=== PATIENT | male | born 1960 | race Caucasian/White ===

== ENCOUNTER 2017-05-10 22:59 | Inpatient (IN) | payer OTHER ==
[2017-05-10] MEDS ORDERED: NITROGLYCERIN OINT 1 INCH/GM PACKET TOPICAL STA (23:29)
[2017-05-10] MEDS ORDERED: ONDANSETRON 4 MG/2 ML VIAL IVP STA (23:29)
[2017-05-10] MEDS ORDERED: ASPIRIN 81 MG CHEW PO STA (23:29)
[2017-05-10] MEDS ORDERED: PANTOPRAZOLE 40 MG/10 ML VIAL IVP STA (23:30)
--- NOTE | 2017-05-10 23:35 | ED ---
Chest Pain HPI - General Chief Complaint: Chest Pain Stated Complaint: Chest Pain Time Seen by Provider: 05/10/17 23:12 Source: patient Mode of arrival: wheelchair Limitations: no limitations - History of Present Illness Initial Comments: This 57-year-old white male presents with a complaint of some midsternal to left -sided lower chest pain. He states that this started a couple of days ago. He describes it as achy nonradiating pain. He states that he has not drank alcohol in 3 years but apparently had several beers the day prior and then vomited twice the day afterwards. He has had intermittent symptoms since. He states that the chest pain is fairly severe earlier in much resolved now. He is still having some nausea. He denies any history of DVT or PE but has had some bilateral lower extremity calf pain for the past month. He denies any actual abdominal pain. He does have a history of gas esophageal reflux and states that his been out of his Prilosec for the past week. He denies any history of pancreatitis. He may have had a degree of anxiety today as he said that he had a bad day. No other complaints or modifying factors. - Related Data Home Medications Medication Instructions Recorded Confirmed Losartan [Cozaar] 25 mg PO BID 05/17/14 06/04/16 ALPRAZolam [Xanax] 2 mg PO HS 07/11/14 06/04/16 amLODIPine [Norvasc] 10 mg PO DAILY 07/11/14 06/04/16 oxyCODONE HCL 30 mg PO Q6HR PRN 07/11/14 06/04/16 hydrALAZINE HCL [Apresoline] 1 tab PO BID 09/12/14 06/04/16 Allergies Allergy/AdvReac Type Severity Reaction Status Date / Time No Known Allergies Allergy Verified 05/10/17 23:06 Review of Systems ROS Statement: Those systems with pertinent positive or pertinent negative responses have been documented in the HPI. ROS Other: All systems not noted in ROS Statement are negative. Past Medical History Past Medical History: Diabetes Mellitus, Hypertension Additional Past Medical History / Comment(s): Hep C, chronic back pain History of Any Multi-Drug Resistant Organisms: None Reported Past Surgical History: Orthopedic Surgery, Tonsillectomy Additional Past Surgical History / Comment(s): right shoulder Past Psychological History: Anxiety Smoking Status: Current every day smoker Past Alcohol Use History: Occasional Past Drug Use History: Marijuana General Exam - General Exam Comments Initial Comments: GENERAL: The patient is well nourished and well hydrated. VITAL SIGNS: Heart rate, blood pressure, respiratory rate reviewed as recorded in nurse's notes. EYES: Pupils are round and reactive. Extraocular movements are intact. No conjunctival / lid redness or swelling. ENT: No external evidence of injury, swelling, or ecchymosis. Airway is patent. Throat is clear. NECK: Nontender. No swelling or evidence of injury. No subcutaneous emphysema. Trachea is midline. No thyroid mass. HEART: Regular rate and rhythm. Good peripheral pulses. LUNGS/CHEST: Breath sounds clear and equal bilaterally. No rales, rhonchi, or wheezes. No ecchymosis, subcutaneous emphysema, or tenderness. ABDOMEN: Abdomen soft without tenderness. No palpable masses or organomegaly. No peritoneal signs. No abdominal wall swelling or ecchymosis. EXTREMITIES: No extremity tenderness. Normal muscle tone and function. No thoracolumbar tenderness. NEUROLOGIC: Sensation is grossly intact. Cranial nerve exam reveals face is symmetrical, tongue is midline, speech is clear. SKIN: No abrasions or ecchymosis is noted. No induration or masses noted. PSYCHIATRIC: Alert and oriented. Appropriate behavior and judgment. Limitations: no limitations Course Vital Signs 05/10/17 05/11/17 23:06 00:15 Temperature 98.5 F Pulse Rate 89 85 Respiratory 22 22 Rate Blood Pressure 162/74 177/74 O2 Sat by Pulse 98 98 Oximetry Chest Pain MDM - MDM The patient was seen and examined. All diagnostics were reviewed. He was placed on a rn cardiac rehab no ectopy is identified. The EKG shows a normal sinus rhythm at a rate of 87. There are no acute ST-T wave changes noted. The [place] interval is 160, QRS duration is 84, and the QTc interval is 423. He does receive some aspirin as well as some Nitropaste, IV Protonix, and Zofran. The laboratory does show elevation of the blood sugar as well as a degree of renal insufficiency and significant elevation of the CPK. The possibility of an early rhabdomyolysis certainly is possible. He relates that he has been in prison for the last 9 months and got out recently and has had increased walking. The possibility of this causing some mild rhabdomyolysis certainly is possible. The CK-MB is also elevated but the troponin is negative. There is no old laboratory in the system to compare previous renal function studies. The chest x-ray does not show any acute process per my evaluation with final radiologic review pending. The case will be discussed with internal medicine shortly and the patient will be admitted to the hospital for further treatment. A lower extremity venous Doppler ultrasound is completed and does not show any evidence of DVT. The possibility of acute coronary syndrome certainly is possible. It is also possible that he could have a degree of gas esophageal reflux since he has been off of his medication recently. He started back on some Protonix. Disposition Clinical Impression: Chest pain, Bilateral calf pain, Hypertension, Nausea and vomiting, GERD ( gastroesophageal reflux disease), Anemia, Renal insufficiency, Rhabdomyolysis Disposition: ADMITTED IP TO THIS HOSP Condition: Fair Time of Disposition: 00:50 Decision Date: 05/11/17 Decision Time: 00:50
[2017-05-11 00:04] LABS: WBC 9.3 k/uL (3.8-10.6)
[2017-05-11 00:05] LABS: Basophils # (A) 0.1 k/uL (0-0.2); Basophils % (A) 1 %; CH 31.1; CHCM 36.1; Eosinophils # (A) 0.4 k/uL (0-0.7); Eosinophils % (A) 4 %; HCT 33.5 % (39.0-53.0); HGB 11.7 gm/dL (13.0-17.5); Luc # (Auto) 0.23; Luc % (Auto) 2; Lymphocytes % (A) 21 %; MCH 30.4 pg (25.0-35.0); MCHC 35.1 g/dL (31.0-37.0); MCV 86.8 fL (80.0-100.0); Mean Platelet Volume 7.8; Monocytes # (A) 0.6 k/uL (0-1.0); Monocytes % (A) 7 %; Neutrophils # (A) 6.1 k/uL (1.3-7.7); Neutrophils % (A) 65 %; RBC 3.86 m/uL (4.30-5.90); RDW 13.8 % (11.5-15.5); WBC (Perox) 8.98
[2017-05-11 00:09] LABS: Calcium 10.4 mg/dL (8.4-10.2); Magnesium 2.2 mg/dL (1.6-2.3); Potassium 3.9 mmol/L (3.5-5.1); Total Bilirubin 0.7 mg/dL (0.2-1.3); Total Protein 7.1 g/dL (6.3-8.2)
[2017-05-11 00:21] LABS: Creatine Kinase 1290 U/L (55-170)
[2017-05-11] MEDS ORDERED: SODIUM CHLORIDE 0.9% 1,000 ML IV STA ×2 (00:32→01:03)
[2017-05-11 00:34] LABS: Troponin I <0.012 ng/mL (0.000-0.034)
[2017-05-11 00:44] LABS: Creatine Kinase MB 9.3 ng/mL (0.0-2.4)
[2017-05-11] MEDS ORDERED: METOCLOPRAMIDE 5 MG/ML 2 ML VIAL IVP STA (00:48)
[2017-05-11] MEDS ORDERED: HYDROmorphone 1 MG/ML 1 ML SYRINGE IVP STA (00:48)
--- NOTE | 2017-05-11 00:48 | XR ---
EXAM: XR Chest, 2 Views CLINICAL HISTORY: Reason: Chest Pain TECHNIQUE: Frontal and lateral views of the chest. COMPARISON: No relevant prior studies available. FINDINGS: Lungs: Lungs are clear. Pleural space: Unremarkable. No pneumothorax. Heart: Heart size within normal limits Mediastinum: Mediastinal structures are unremarkable Bones/joints: Hypertrophic degenerative changes involve the thoracic spine. IMPRESSION: No evidence of active chest disease.
[2017-05-11] MEDS ORDERED: FAMOTIDINE 20 MG/2 ML VIAL IV STA (00:51)
[2017-05-11] MEDS ORDERED: HEPARIN SODIUM,PORCINE 5,000 UNIT/ML 1 ML VIAL IV PRN (00:52)
[2017-05-11] MEDS ORDERED: HEPARIN SODIUM,PORCINE 5,000 UNIT/ML 1 ML VIAL IV ONE (00:52)
[2017-05-11] MEDS ORDERED: NITROGLYCERIN SL TABS 0.4 MG TAB SUBLINGUAL PRN (00:52)
[2017-05-11] MEDS ORDERED: MORPHINE SULFATE 4 MG/ML SYRINGE IV PRN (00:52)
[2017-05-11 00:54] LABS: Prothrombin Time 9.9 sec (9.0-12.0)
[2017-05-11] MEDS ORDERED: METOCLOPRAMIDE 5 MG/ML 2 ML VIAL IVP PRN (00:56)
[2017-05-11] MEDS ORDERED: HEPARIN SODIUM,PORCINE/D5W PMX 25,000 UNIT in DEXTROSE/WATER 1 500ML.BAG IV SCH (01:00)
[2017-05-11] MEDS ORDERED: cloNIDine HCL 0.1 MG TAB PO PRN (01:02)
[2017-05-11 01:04] LABS: Partial Thromboplastin Time 21.8 sec (22.0-30.0)
--- NOTE | 2017-05-11 01:04 | US ---
EXAM: US Duplex Bilateral Lower Extremity Veins CLINICAL HISTORY: Reason: Pain TECHNIQUE: Real-time ultrasound scan of the veins of the bilateral lower extremities with color Doppler flow, spectral waveform analysis and compression. COMPARISON: No relevant prior studies available. FINDINGS: Right deep veins: Unremarkable. No DVT in the right common femoral, femoral, proximal deep femoral or popliteal veins. The veins are compressible with normal color flow and augmentation. Right superficial veins: Unremarkable. No thrombus in the visualized right great saphenous vein. Left deep veins: Unremarkable. No DVT in the left common femoral, femoral, proximal deep femoral or popliteal veins. The veins are compressible with normal color flow and augmentation. Left superficial veins: Unremarkable. No thrombus in the visualized left great saphenous vein. IMPRESSION: No ultrasound evidence of deep venous thrombosis.
[2017-05-11 02:16] VITALS: BMI 37.7
[2017-05-11] MEDS: ONDANSETRON 4 MG/2 ML VIAL IVP SCH ×4 (02:20→12:04)
[2017-05-11] MEDS: NITROGLYCERIN OINT 1 INCH/GM PACKET TOPICAL SCH ×2 (05:19→11:53)
[2017-05-11 05:48] LABS: Glucose,Whole Blood 208 mg/dL (75-99)
[2017-05-11] MEDS: INSULIN LISPRO (humaLOG) 300 UNIT/3 ML VIAL SQ SCH ×2 (06:28→12:46)
[2017-05-11 06:43] LABS: Anion Gap 11 mmol/L; Blood Urea Nitrogen 45 mg/dL (9-20); Calcium 9.1 mg/dL (8.4-10.2); Carbon Dioxide 19 mmol/L (22-30); Chloride 108 mmol/L (98-107); Glucose 184 mg/dL (74-99); Non-African American GFR(MDRD) 59 (>60 ml/min/1.73 sqM); Potassium 4.2 mmol/L (3.5-5.1); Sodium 138 mmol/L (137-145)
[2017-05-11 06:55] LABS: Creatine Kinase 918 U/L (55-170)
[2017-05-11 07:09] LABS: Troponin I <0.012 ng/mL (0.000-0.034)
[2017-05-11 07:12] LABS: Creatine Kinase MB 6.8 ng/mL (0.0-2.4)
[2017-05-11 07:22] LABS: Mean Platelet Volume 7.5
[2017-05-11] MEDS ORDERED: amLODIPine 10 MG TAB PO SCH (09:00)
[2017-05-11] MEDS ORDERED: LOSARTAN 25 MG TAB PO SCH (09:00)
[2017-05-11] MEDS ORDERED: PANTOPRAZOLE 40 MG/10 ML VIAL IVP SCH (09:00)
[2017-05-11] MEDS ORDERED: hydrALAZINE HCL 50 MG TAB PO SCH (09:00)
[2017-05-11 09:27] VITALS: RESP 18
--- NOTE | 2017-05-11 10:42 | P.CRDCN ---
History of Present Illness Consult date: 05/11/17 History of present illness: His is a 57-year-old gentleman with history of of diabetes and hypertension, apparently had a few beers prior to the admission followed by nausea and vomiting. He also had some chest pain which seemed to mostly in the epigastric area well localized .The pain increases on deep breathing. The pain seemed to be better today. Patient also has history of acid reflux. His cardiac enzymes studies are negative. His EKG did not reveal any acute changes. It appears that the pains are atypical. From cardiac standpoint, patient could be discharged home. Patient could have an outpatient stress test and follow-up with his primary care physician Review of Systems As per the chart Past Medical History Past Medical History: Diabetes Mellitus, Hypertension Additional Past Medical History / Comment(s): Hep C, chronic back pain History of Any Multi-Drug Resistant Organisms: None Reported Past Surgical History: Orthopedic Surgery, Tonsillectomy Additional Past Surgical History / Comment(s): right shoulder Past Psychological History: Anxiety Smoking Status: Current every day smoker Past Alcohol Use History: Rare Past Drug Use History: Marijuana Medications and Allergies Home Medications Medication Instructions Recorded Confirmed Type Melatonin 9 mg PO HS 05/11/17 05/11/17 History Sertraline [Zoloft] 100 mg PO HS 05/11/17 05/11/17 History Allergies Allergy/AdvReac Type Severity Reaction Status Date / Time No Known Allergies Allergy Verified 05/10/17 23:06 Physical Exam Vitals: Vital Signs Temp Pulse Pulse Resp BP BP Pulse Ox 05/11/17 08:00 97.3 F L 74 18 131/64 93 L 05/11/17 04:00 97.5 F L 76 16 133/71 95 05/11/17 01:39 98.0 F 05/11/17 01:21 97.5 F L 81 16 163/77 96 05/11/17 00:59 85 22 143/69 99 05/11/17 00:52 96 05/11/17 00:15 85 22 177/74 98 05/10/17 23:06 98.5 F 89 22 162/74 98 Intake and Output 05/10/17 05/11/17 05/11/17 22:59 06:59 14:59 Intake Total 400 137 Output Total 400 Balance 0 137 Intake: IV 400 Sodium Chloride 0.9% 1, 400 000 ml @ 125 mls/hr IV . Q8H [facility] Rx#:[id number] Intake, IV Titration 137 Amount Heparin Sodium,Porcine/ 137 D5w Pmx 25,000 unit In Dextrose/Water 1 500ml. bag @ 8.9 UNITS/KG/HR 20. 18 mls/hr IV .Q24H [facility] Rx #:[id number] Output: Urine 400 Other: Voiding Method Toilet Toilet Urinal Urinal Weight 115.8 kg GENERAL EXAM: Patient is alert and oriented and doesn't appear to be in any acute distress HEENT: Normocephalic. Normal reaction of pupils, equal size, normal range of extraocular motion. No erythema or exudates in the throat. NECK: No masses, no nuchal rigidity. CHEST: No chest wall deformity. LUNGS: Equal air entry with no crackles or wheeze. HEART: S1 and S2 normal with no audible mumurs or gallops. Regular rhythm, femorals equal on both sides.. ABDOMEN: No hepatosplenomegaly, normal bowel sounds, no guarding or rigidity. Epigastric tenderness present SKIN: No rashes CENTRAL NERVOUS SYSTEM: No focal deficits. EXTREMITIES: No cyanosis, clubbing or edema. Results 05/11/17 05:40 05/11/17 05:40 Cardiac Enzymes 05/10/17 05/10/17 05/11/17 Range/Units 23:46 23:46 05:40 AST 68 H (17-59) U/L CK-MB (CK-2) 9.3 H* 6.8 H* (0.0-2.4) ng/mL Troponin I <0.012 <0.012 (0.000-0.034) ng/mL Coagulation 05/10/17 05/11/17 Range/Units 23:46 05:40 PT 9.9 (9.0-12.0) sec APTT 21.8 L 30.1 H (22.0-30.0) sec CBC 05/10/17 05/11/17 Range/Units 23:46 05:40 WBC 9.3 (3.8-10.6) k/uL RBC 3.86 L (4.30-5.90) m/uL Hgb 11.7 L (13.0-17.5) gm/dL Hct 33.5 L (39.0-53.0) % Plt Count 180 162 (150-450) k/uL Comprehensive Metabolic Panel 05/10/17 05/11/17 Range/Units 23:46 05:40 Sodium 137 138 (137-145) mmol/L Potassium 3.9 4.2 (3.5-5.1) mmol/L Chloride 102 108 H (98-107) mmol/L Carbon Dioxide 21 L 19 L (22-30) mmol/L BUN 50 H 45 H (9-20) mg/dL Creatinine 1.50 H 1.26 H (0.66-1.25) mg/dL Glucose 222 H 184 H (74-99) mg/dL Calcium 10.4 H 9.1 (8.4-10.2) mg/dL AST 68 H (17-59) U/L ALT 71 (21-72) U/L Alkaline Phosphatase 127 H (38-126) U/L Total Protein 7.1 (6.3-8.2) g/dL Albumin 4.3 (3.5-5.0) g/dL Current Medications Generic Name Dose Route Start Last Admin Trade Name Freq PRN Reason Stop Dose Admin Amlodipine Besylate 10 mg 05/11/17 09:00 05/11/17 08:05 Norvasc PO 10 mg DAILY [facility] Administration Aspirin 325 mg 05/12/17 09:00 Aspirin PO DAILY [facility] Clonidine 0.1 mg 05/11/17 01:02 Catapres PO Q8H PRN Hypertension Heparin Sodium (Porcine) 0 unit 05/11/17 00:52 Heparin IV Q6HR PRN Low PTT Protocol Hydralazine HCl 50 mg 05/11/17 09:00 05/11/17 08:05 Apresoline PO 50 mg BID ALEJO Administration Heparin Sodium/Dextrose 25,000 500 mls @ 20.18 mls/hr 05/11/17 01:00 08:19 unit/ IV Solution IV 11.8 units/kg/hr .Q24H ALE[facility] 26.76 mls/hr Protocol Titration 8.9 UNITS/KG/HR Insulin Human Lispro 0 unit 05/11/17 07:30 05/11/17 06:28 Humalog SQ Not Given ACHS ALEJO Protocol Losartan Potassium 25 mg 05/11/17 09:00 05/11/17 08:06 Cozaar PO 25 mg BID ALEJO Administration Metoclopramide HCl 10 mg 05/11/17 00:56 Reglan IVP Q6H PRN Nausea Morphine Sulfate 4 mg 05/11/17 00:52 Morphine Sulfate (Inj) IV Q4H PRN Chest Pain Nitroglycerin 1 inch 05/11/17 06:00 05/11/17 05:19 Nitro-Bid Oint TOPICAL 1 inch Q6HR ALEJO Administration Nitroglycerin 0.4 mg 05/11/17 00:52 Nitrostat SUBLINGUAL Q5M PRN Chest Pain Ondansetron HCl 4 mg 05/11/17 01:00 05/11/17 08:10 Zofran IVP 4 mg Q4H ALE[facility] Administration Pantoprazole Sodium 40 mg 05/11/17 09:00 05/11/17 08:06 Protonix IVP 40 mg DAILY ALE[facility] Administration Intake and Output 05/10/17 05/11/17 05/11/17 22:59 06:59 14:59 Intake Total 400 137 Output Total 400 Balance 0 137 Intake: IV 400 Sodium Chloride 0.9% 1, 400 000 ml @ 125 mls/hr IV . Q8H [facility] Rx#:[id number] Intake, IV Titration 137 Amount Heparin Sodium,Porcine/ 137 D5w Pmx 25,000 unit In Dextrose/Water 1 500ml. bag @ 8.9 UNITS/KG/HR 20. 18 mls/hr IV .Q24H [facility] Rx #:[id number] Output: Urine 400 Other: Voiding Method Toilet Toilet Urinal Urinal Weight 115.8 kg 05/11/17 05:40 05/11/17 05:40 EKG Interpretations (text) Sinus rhythm Assessment and Plan (1) Chest pain Status: Acute (2) GERD (gastroesophageal reflux disease) Status: Acute (3) Hypertension Status: Acute (4) Renal insufficiency Status: Acute (5) Rhabdomyolysis Status: Acute Plan: Recent chest pains appear to be atypical. Cardiac enzymes are negative. From cardiac standpoint, patient could be discharged home to have an outpatient stress test
[2017-05-11 11:23] LABS: Glucose,Whole Blood 207 mg/dL (75-99)
[2017-05-11] MEDS ORDERED: SODIUM CHLORIDE 0.9% 1,000 ML IV SCH (12:00)
[2017-05-11 13:32] LABS: Creatine Kinase 704 U/L (55-170)
[2017-05-11 13:46] LABS: Troponin I <0.012 ng/mL (0.000-0.034)
[2017-05-11 13:54] LABS: Creatine Kinase MB 5.6 ng/mL (0.0-2.4)
[2017-05-11] MEDS ORDERED: SODIUM CHLORIDE 0.9% 500 ML IV ONE (13:55)
[2017-05-11 14:09] VITALS: BP 122/56; PULSE 83; TEMP 98.4
--- NOTE | 2017-05-11 14:47 | P.HPIM ---
History of Present Illness His is a 57-year-old gentleman with history of of diabetes and hypertension, had a few beers prior to the admission followed by nausea and vomiting, with epigastric abdominal burning sensation seconded all colic gastritis. Aberrantly patient complained about pain that is pruritic in nature because of which patient had a d-dimer that was positive. Although patient does not have any more chest pain because of which my suspicion is extremely low for pulmonary embolism and I do not believe any further testing including PD to be done at this point of time. Patient's chest pain completely resolved with Protonix and is noncardiac in nature. He also had some chest pain which seemed to mostly in the epigastric area well localized . Patient also has history of acid reflux. His cardiac enzymes studies are negative. His EKG did not reveal any acute changes. It appears that the pains are atypical. Review of Systems REVIEW OF SYSTEMS: CONSTITUTIONAL: No fever, no malaise, no fatigue. HEENT: No recent visual problems or hearing problems. Denied any sore throat. CARDIOVASCULAR: No chest pain, orthopnea, PND, no palpitations, no syncope. PULMONARY: No shortness of breath, no cough, no hemoptysis. GASTROINTESTINAL: As described in HPI NEUROLOGICAL: No headaches, no weakness, no numbness. HEMATOLOGICAL: Denies any bleeding or petechiae. GENITOURINARY: Denies any burning micturition, frequency, or urgency. MUSCULOSKELETAL/RHEUMATOLOGICAL: Denies any joint pain, swelling, or any muscle pain. ENDOCRINE: Denies any polyuria or polydipsia. The rest of the 14-point review of systems is negative. Past Medical History Past Medical History: Diabetes Mellitus, Hypertension Additional Past Medical History / Comment(s): Hep C, chronic back pain History of Any Multi-Drug Resistant Organisms: None Reported Past Surgical History: Orthopedic Surgery, Tonsillectomy Additional Past Surgical History / Comment(s): right shoulder Past Psychological History: Anxiety Smoking Status: Current every day smoker Past Alcohol Use History: Rare Past Drug Use History: Marijuana Medications and Allergies Home Medications Medication Instructions Recorded Confirmed Type Melatonin 9 mg PO HS 05/11/17 05/11/17 History Sertraline [Zoloft] 100 mg PO HS 05/11/17 05/11/17 History Allergies Allergy/AdvReac Type Severity Reaction Status Date / Time No Known Allergies Allergy Verified 05/10/17 23:06 Physical Exam Vitals: Vital Signs Temp Pulse Pulse Resp BP BP Pulse Ox 05/11/17 12:00 98.4 F 83 18 122/56 93 L 05/11/17 08:00 97.3 F L 74 18 131/64 93 L 05/11/17 04:00 97.5 F L 76 16 133/71 95 05/11/17 01:39 98.0 F 05/11/17 01:21 97.5 F L 81 16 163/77 96 05/11/17 00:59 85 22 143/69 99 05/11/17 00:52 96 05/11/17 00:15 85 22 177/74 98 05/10/17 23:06 98.5 F 89 22 162/74 98 Intake and Output 05/10/17 05/11/17 05/11/17 22:59 06:59 14:59 Intake Total 400 377 Output Total 400 400 Balance 0 -23 Intake: IV 400 Sodium Chloride 0.9% 1, 400 000 ml @ 125 mls/hr IV . Q8H [facility] Rx#:[id number] Intake, IV Titration 137 Amount Heparin Sodium,Porcine/ 137 D5w Pmx 25,000 unit In Dextrose/Water 1 500ml. bag @ 8.9 UNITS/KG/HR 20. 18 mls/hr IV .Q24H [facility] Rx #:[id number] Oral 240 Output: Urine 400 400 Other: Voiding Method Toilet Toilet Urinal Urinal # Voids 1 Weight 115.8 kg PHYSICAL EXAMINATION: GENERAL: The patient is alert and oriented x3, not in any acute distress. Well developed, well nourished. HEENT: Pupils are round and equally reacting to light. EOMI. No scleral icterus. No conjunctival pallor. Normocephalic, atraumatic. No pharyngeal erythema. No thyromegaly. CARDIOVASCULAR: S1 and S2 present. No murmurs, rubs, or gallops. PULMONARY: Chest is clear to auscultation, no wheezing or crackles. ABDOMEN: Soft, nontender, nondistended, normoactive bowel sounds. No palpable organomegaly. MUSCULOSKELETAL: No joint swelling or deformity. EXTREMITIES: No cyanosis, clubbing, or pedal edema. NEUROLOGICAL: Gross neurological examination did not reveal any focal deficits. SKIN: No rashes. Results CBC & Chem 7: 05/11/17 05:40 05/11/17 05:40 Labs: Abnormal Lab Results - Last 24 Hours (Table) 05/10/17 05/10/17 05/10/17 Range/Units 23:46 23:46 23:46 RBC 3.86 L (4.30-5.90) m/uL Hgb 11.7 L (13.0-17.5) gm/dL Hct 33.5 L (39.0-53.0) % APTT (22.0-30.0) sec D-Dimer (<0.60) mg/L FEU Chloride (98-107) mmol/L Carbon Dioxide 21 L (22-30) mmol/L BUN 50 H (9-20) mg/dL Creatinine 1.50 H (0.66-1.25) mg/dL Glucose 222 H (74-99) mg/dL POC Glucose (mg/dL) (75-99) mg/dL Calcium 10.4 H (8.4-10.2) mg/dL AST 68 H (17-59) U/L Alkaline Phosphatase 127 H (38-126) U/L Total Creatine Kinase 1290 H (55-170) U/L CK-MB (CK-2) 9.3 H* (0.0-2.4) ng/mL 05/10/17 05/11/17 05/11/17 Range/Units 23:46 05:40 05:40 RBC (4.30-5.90) m/uL Hgb (13.0-17.5) gm/dL Hct (39.0-53.0) % APTT 21.8 L (22.0-30.0) sec D-Dimer 1.66 H (<0.60) mg/L FEU Chloride 108 H (98-107) mmol/L Carbon Dioxide 19 L (22-30) mmol/L BUN 45 H (9-20) mg/dL Creatinine 1.26 H (0.66-1.25) mg/dL Glucose 184 H (74-99) mg/dL POC Glucose (mg/dL) (75-99) mg/dL Calcium (8.4-10.2) mg/dL AST (17-59) U/L Alkaline Phosphatase (38-126) U/L Total Creatine Kinase 918 H (55-170) U/L CK-MB (CK-2) 6.8 H* (0.0-2.4) ng/mL 05/11/17 05/11/17 05/11/17 Range/Units 05:40 05:47 11:14 RBC (4.30-5.90) m/uL Hgb (13.0-17.5) gm/dL Hct (39.0-53.0) % APTT 30.1 H (22.0-30.0) sec D-Dimer (<0.60) mg/L FEU Chloride (98-107) mmol/L Carbon Dioxide (22-30) mmol/L BUN (9-20) mg/dL Creatinine (0.66-1.25) mg/dL Glucose (74-99) mg/dL POC Glucose (mg/dL) 208 H 207 H (75-99) mg/dL Calcium (8.4-10.2) mg/dL AST (17-59) U/L Alkaline Phosphatase (38-126) U/L Total Creatine Kinase (55-170) U/L CK-MB (CK-2) (0.0-2.4) ng/mL 05/11/17 Range/Units 12:28 RBC (4.30-5.90) m/uL Hgb (13.0-17.5) gm/dL Hct (39.0-53.0) % APTT (22.0-30.0) sec D-Dimer (<0.60) mg/L FEU Chloride (98-107) mmol/L Carbon Dioxide (22-30) mmol/L BUN (9-20) mg/dL Creatinine (0.66-1.25) mg/dL Glucose (74-99) mg/dL POC Glucose (mg/dL) (75-99) mg/dL Calcium (8.4-10.2) mg/dL AST (17-59) U/L Alkaline Phosphatase (38-126) U/L Total Creatine Kinase 704 H (55-170) U/L CK-MB (CK-2) 5.6 H* (0.0-2.4) ng/mL Thrombosis Risk Factor Assmnt - Choose All That Apply Each Factor Represents 1 point: Age 41-60 years, Obesity (BMI >25) Thrombosis Risk Factor Assessment Total Risk Factor Score: 2 Thrombosis Risk Factor Assessment Level: Low Risk Assessment and Plan Plan: Assessment #1 chest pain: Related to gastritis from alcohol patient most probably has chronic gastritis improved symptoms with the Protonix and patient will be discharged on Prilosec for 14 days. Patient doesn't drink alcohol regularly.. 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 His chest pain is noncardiac. My suspicion is extremely low for pulmonary embolism in spite of elevated d-dimer which is pretty much a nonspecific test. #2 Nausea vomiting: Secondry gastritis 3 obesity: Counseling was provided. Patient will benefit from sleep apnea testing as an outpatient. #4 Depression Riri with Zoloft. Patient will be discharged today.
--- NOTE | 2017-05-11 14:48 | P.DS ---
Providers Date of admission: 05/11/17 00:52 Attending physician: Theo Haider Consults: 05/11/17 00:52 Consult Physician Urgent Consulting Provider: Michael Arnett Consult Reason/Comments: cp Do you want consulting provider notified?: Yes Primary care physician: Stated None Hospital Course: Please refer to HPI for further details Patient Condition at Discharge: Fair Plan - Discharge Summary New Discharge Prescriptions: New Omeprazole [PriLOSEC] 40 mg PO AC-BRKFST #14 capsule. No Action Sertraline [Zoloft] 100 mg PO HS Melatonin 9 mg PO HS Discharge Medication List Melatonin 9 mg PO HS 05/11/17 [History] Omeprazole [PriLOSEC] 40 mg PO AC-BRKFST #14 capsule. 05/11/17 [Rx] Sertraline [Zoloft] 100 mg PO HS 05/11/17 [History] Discharge Disposition: HOME SELF-CARE
[2017-05-12] MEDS ORDERED: ASPIRIN 325 MG TAB PO SCH (09:00)
[2017-05-12] MEDS ORDERED: amLODIPine 5 MG TAB PO SCH (09:00)
[2017-05-12 09:28] LABS: Hemoglobin A1C 7.5 % (4.2-6.1)
== END 2017-05-11 15:31 | disposition home or self-care (01) | DRG 392 ==
LOC: EC 22:59 → 6SEL 05-11 00:52
PROVIDERS: ADMIT Hospitalist; ATTEND Hospitalist
DX: K29.50 Unspecified chronic gastritis without bleeding (principal); M62.82 Rhabdomyolysis; I10 Essential (primary) hypertension; F32.9 Major depressive disorder, single episode, unspecified; D64.9 Anemia, unspecified; E11.9 Type 2 diabetes mellitus without complications; R07.89 Other chest pain; N28.9 Disorder of kidney and ureter, unspecified; B19.20 Unspecified viral hepatitis C without hepatic coma; K21.9 Gastro-esophageal reflux disease without esophagitis; M79.661 Pain in right lower leg; M79.662 Pain in left lower leg; E66.9 Obesity, unspecified; F41.9 Anxiety disorder, unspecified; G89.29 Other chronic pain; L29.9 Pruritus, unspecified; M54.9 Dorsalgia, unspecified; F12.90 Cannabis use, unspecified, uncomplicated; F17.200 Nicotine dependence, unspecified, uncomplicated; Z68.37 Body mass index [BMI] 37.0-37.9, adult; Z79.899 Other long term (current) drug therapy; Z71.3 Dietary counseling and surveillance
CPT/HCPCS: 36415; 71020; 80048; 80053; 82150; 82550; 82553; 83036; 83690; 83735; 84484; 85025; 85049; 85379; 85610; 85730; 93005; 93970; 96361; 96374; 96375; 96376; 99285

== ENCOUNTER → 2017-05-14 | Outpatient (CLI) | payer OTHER ==
--- NOTE | 2017-05-14 13:14 | XR ---
EXAMINATION TYPE: XR Hip Complete LT , 2 VIEWS DATE OF EXAM ORDERED: 05/14/2017 HISTORY: pain R52. COMPARISON: None. FINDINGS: The hip joint is well-maintained. No fracture, dislocation or other osseous lesion is seen . IMPRESSION: NORMAL LEFT HIP.
== END | disposition home or self-care (01) ==
LOC: RADXRMAIN 12:51
PROVIDERS: ATTEND Family Medicine
DX: M25.552 Pain in left hip (principal)
CPT/HCPCS: 73502

== ENCOUNTER → 2017-06-01 | Outpatient (CLI) | payer OTHER ==
--- NOTE | 2017-06-01 15:59 | MR ---
EXAMINATION TYPE: MR lumbar spine wo con DATE OF EXAM: 06/01/2017 COMPARISON: 10/08/2010 HISTORY: 57-year-old male with low back pain, bilateral lower extremity radiculopathy for several yea rs TECHNIQUE: Multiplanar, multisequence images of the lumbar spine were acquired. FINDINGS: Vertebral body heights are preserved. Hypertrophic facet arthropathy throughout with new grade 1 retrolistheses at T12-L1 and L1-L2. Mild diffuse marrow heterogeneity without suspicious bone marrow replacement. Multilevel degenerative disc disease with degenerated, desiccated, and bulging discs. Mild disc space narrowing throughout. Disc bulges show interval increase from prior exam. While the conus medullaris is normally located, there is a congenital spinal canal stenosis especiall y at the mid lumbar spine with AP canal dimension of 1.2 cm. At T11-T12, there is mild bulging disc and facet degenerative change without significant canal or for aminal stenosis. At T12-L1, trace retrolisthesis with diffuse disc bulge and facet degenerative change. Mild impressio n on the ventral thecal sac with minimal inferior narrowing of the left neuroforamen. No significant spinal canal or neuroforaminal stenosis. At L1-L2, trace retrolisthesis with diffuse disc bulge, ligamentum flavum thickening, prominent dorsa l epidural fat, and facet degenerative change. There is increasing, moderate spinal canal stenosis wi th very little if any CSF signal remaining and bunched up cauda equina nerve roots. Moderate bilatera l neuroforaminal stenosis at this level increased particularly on the right. At L2-L3, there is diffuse disc bulge with facet arthropathy and ligamentum flavum thickening. Change s result in worsening moderate spinal canal stenosis with mild left and [id number] right neurof oraminal stenosis. At L3-L4, diffuse disc bulge with hypertrophic facet arthropathy and ligamentum flavum thickening. Th is accentuates the mild spinal canal stenosis and is worsened as compared to prior exam. Mild bilater al neuroforaminal stenosis. At L4-L5, fused disc bulge with facet arthropathy and ligamentum flavum thickening. There is mild tomas ateral neuroforaminal stenosis without spinal canal stenosis. At L5-S1, there is facet arthropathy without significant canal or foraminal stenosis. No prevertebral or paravertebral soft tissue abnormality. Borderline ectasia of the upper abdominal aorta at 2.5 cm. IMPRESSION: 1. Congenital spinal canal narrowing with interval worsening moderate multilevel degenerative disc di sease and facet arthropathy now with new trace retrolistheses at T12-L1 and L1-L2. 2. Worsened, now moderate spinal canal stenoses at L1-L2 and L2-L3. 3. Variable mild to moderate neuroforaminal stenoses as outlined above particularly in the upper to m id lumbar spine.
== END | disposition home or self-care (01) ==
LOC: RADMRIMAIN 12:07
PROVIDERS: ATTEND Family Medicine
DX: M48.06 Spinal stenosis, lumbar region (principal); M51.16 Intervertebral disc disorders with radiculopathy, lumbar region; M46.96 Unspecified inflammatory spondylopathy, lumbar region; M99.73 Connective tissue and disc stenosis of intervertebral foramina of lumbar region; M43.16 Spondylolisthesis, lumbar region
CPT/HCPCS: 72148

== ENCOUNTER → 2017-06-29 | Outpatient (CLI) | payer OTHER ==
--- NOTE | 2017-06-29 16:07 | MR ---
EXAMINATION TYPE: MR cervical spine wo con DATE OF EXAM: 06/29/2017 COMPARISON: 10/08/2010 HISTORY: Neck pain, tomas arm pain and weakness TECHNIQUE: Multiplanar, multisequence images of the cervical spine were acquired. C2-C3: Uncovertebral hypertrophy and a broad-based disc osteophyte as well as facet arthropathy contr ibute to severe left neural foraminal narrowing. No right neural foraminal narrowing or spinal canal stenosis are seen. C3-C4: Progressive disc bulge in disc osteophyte complex as well as ligamentum flavum buckling, uncov ertebral hypertrophy, and facet arthropathy contribute to moderate spinal canal stenosis with resulta nt focal increased signal of the cervical cord, not appreciated on the prior examination. This is mor e likely to relate to myelomalacia as there is no reported known trauma. The patient states the sympt oms have been present for 10 years. Bilateral severe neural foraminal stenosis is seen. C4-C5: Broad-based disc bulge and disc osteophyte complex are seen in combination with uncovertebral hypertrophy and facet arthropathy creating at least moderate bilateral neural foraminal narrowing. C5-C6: Left paracentral disc herniation superimposed on a broad-based disc bulge extends into the lef t lateral recess creating severe left neural foraminal narrowing, moderate spinal canal stenosis, and at least moderate right neural foraminal narrowing. No abnormal spinal cord signal is seen. Ligament um flavum buckling is noted. C6-C7: Broad-based disc bulge and disc osteophyte complex as well as uncovertebral hypertrophy create moderate bilateral neural foraminal narrowing. C7-T1: Broad-based disc bulge, uncovertebral hypertrophy, and facet arthropathy creating moderate lef t neural foraminal narrowing and mild right neural foraminal narrowing. Cervical segments are intact. There is normal alignment. Craniovertebral junction relationships are within normal limits. Findings were conveyed to the bilingual medical receptionist Chris of Dr. Diehl (ordering physician) at 1601 on 06/29/17. IMPRESSION: 1. Progressive disc bulge and disc osteophyte complex resulting in moderate spinal canal stenosis and increased focal signal of the cervical cord. This is favored to relate to myelomalacia, however it i s not present on the prior exam and could relate to cord edema. Clinical correlation is recommended a nd findings were discussed with the ordering physician's staff. 2. Left paracentral disc herniation at C5-C6 resulting in moderate spinal canal stenosis, at least mo derate right neuroforaminal narrowing, and severe left neural foraminal narrowing. 3. Multilevel degenerative disc disease resulting in variable degrees of neural foraminal narrowing a s described above.
== END | disposition home or self-care (01) ==
LOC: RADMRIMAIN 14:39
PROVIDERS: ATTEND Physical Medicine & Rehabilitation
DX: M48.02 Spinal stenosis, cervical region (principal); M99.71 Connective tissue and disc stenosis of intervertebral foramina of cervical region; M50.222 Other cervical disc displacement at C5-C6 level; M50.30 Other cervical disc degeneration, unspecified cervical region
CPT/HCPCS: 72141

== ENCOUNTER 2017-11-10 10:26 | Emergency (ER) | payer OTHER ==
--- NOTE | 2017-11-10 10:53 | ED ---
General Adult HPI - General Chief complaint: Upper Respiratory Infection Stated complaint: Cough and sore throat Time Seen by Provider: 11/10/17 10:48 Source: patient, RN notes reviewed Mode of arrival: ambulatory Limitations: no limitations - History of Present Illness Initial comments: Patient is a pleasant 67-year-old male presenting to the emergency Department with complaints of cough and sore throat. Onset of symptoms was a few days ago. Symptoms seem worse this morning. Patient did gargle some salt water with some improvement of symptoms. Patient has been coughing green sputum. No fevers. Patient also has sinus congestion. - Related Data Home Medications Medication Instructions Recorded Confirmed Melatonin 9 mg PO HS 05/11/17 11/10/17 Cyclobenzaprine [Flexeril] 10 mg PO TID PRN 11/10/17 11/10/17 Losartan Potassium [Cozaar] 100 mg PO DAILY 11/10/17 11/10/17 amLODIPine [Norvasc] 10 mg PO DAILY 11/10/17 11/10/17 metFORMIN HCL [Glucophage] 500 mg PO BID 11/10/17 11/10/17 Previous Rx's Medication Instructions Recorded Hydrocodone/Acetaminophen [[place] 1 tab PO Q6HR PRN #12 tab 11/02/17 5-325] Ibuprofen [Motrin] 600 mg PO Q8HR PRN #30 tab 11/02/17 Albuterol Inhaler [Ventolin Hfa 2 puff INHALATION Q4HR PRN #1 11/10/17 Inhaler] inhaler Azithromycin [Zithromax Z-pack] 250 mg PO DIRECTED #6 tab 11/10/17 Allergies Allergy/AdvReac Type Severity Reaction Status Date / Time No Known Allergies Allergy Verified 11/10/17 11:01 Review of Systems ROS Statement: Those systems with pertinent positive or pertinent negative responses have been documented in the HPI. ROS Other: All systems not noted in ROS Statement are negative. Constitutional: Denies: fever Eyes: Denies: eye pain ENT: Reports: throat pain, congestion Respiratory: Reports: cough Cardiovascular: Denies: chest pain Endocrine: Denies: fatigue Gastrointestinal: Denies: abdominal pain Genitourinary: Denies: dysuria Musculoskeletal: Denies: back pain Skin: Denies: rash Neurological: Denies: weakness Past Medical History Past Medical History: Diabetes Mellitus, Hypertension Additional Past Medical History / Comment(s): Hep C, chronic back pain History of Any Multi-Drug Resistant Organisms: None Reported Past Surgical History: Orthopedic Surgery, Tonsillectomy Additional Past Surgical History / Comment(s): right shoulder Past Psychological History: Anxiety Smoking Status: Current every day smoker Past Alcohol Use History: Rare Past Drug Use History: Marijuana General Exam Limitations: no limitations General appearance: alert, in no apparent distress Head exam: Present: atraumatic Eye exam: Present: normal appearance, PERRL ENT exam: Present: other (Mild pharyngeal erythema. Tenderness over the maxillary sinuses.) Neck exam: Present: normal inspection. Absent: tenderness, meningismus, lymphadenopathy Respiratory exam: Present: rhonchi. Absent: respiratory distress Cardiovascular Exam: Present: regular rate, normal rhythm GI/Abdominal exam: Present: soft. Absent: tenderness Extremities exam: Present: normal inspection Neurological exam: Present: alert Psychiatric exam: Present: normal affect, normal mood Skin exam: Present: normal color Course Vital Signs 11/10/17 11/10/17 10:36 11:04 Temperature 99 F Pulse Rate 98 Respiratory 22 19 Rate Blood Pressure 148/65 O2 Sat by Pulse 96 Oximetry Medical Decision Making - Medical Decision Making Patient reevaluated and updated. Patient updated on need for follow-up with pulmonary nodule. - Lab Data Lab Results 11/10/17 Range/Units 10:44 Group A Strep Rapid Negative (Negative) - Radiology Data Radiology results: image reviewed (Chest x-ray shows no focal infiltrate. Pulmonary nodule. Currently for COPD.) Disposition Clinical Impression: Bronchitis, Sinusitis Disposition: HOME SELF-CARE Condition: Stable Instructions: Sinusitis (ED), Acute Bronchitis (ED) Additional Instructions: Please follow-up with primary care physician in the next couple days for recheck. Have primary care physician to repeat chest x-ray in the next 2-3 months for pulmonary nodule. He will likely need another repeat x-ray following this. Return for difficulty breathing, fevers, worsening symptoms or other concerns. Continue saltwater gargle and saline nasal spray as needed. Prescriptions: Albuterol Inhaler [Ventolin Hfa Inhaler] 2 puff INHALATION Q4HR PRN #1 inhaler PRN Reason: Dyspnea Azithromycin [Zithromax Z-pack] 250 mg PO DIRECTED #6 tab Referrals: Gauri Reid MD [STAFF PHYSICIAN] - 1-2 days Time of Disposition: 11:19
--- NOTE | 2017-11-10 11:02 | XR ---
EXAMINATION TYPE: XR chest 2V DATE OF EXAM: 11/10/2017 COMPARISON: 05/11/2017 TECHNIQUE: PA and lateral views submitted. HISTORY: Pain FINDINGS: The lungs are clear and there is no pneumothorax, pleural effusion, or focal pneumonia. Hypertrophi c and degenerative change of the spine. Question a 3 mm nodule right upper lobe. IMPRESSION: 1. No acute process. Question a 3 mm nodule right upper lobe which could be followed with a 3 month f ollow-up chest x-ray. 2. Correlate for COPD
[2017-11-10 23:24] VITALS: BP 148/65; PULSE 98; RESP 19; TEMP 99
== END 2017-11-10 11:25 | disposition home or self-care (01) ==
LOC: EC 10:26
DX: J40 Bronchitis, not specified as acute or chronic (principal); J32.9 Chronic sinusitis, unspecified; E11.9 Type 2 diabetes mellitus without complications; I10 Essential (primary) hypertension; F41.9 Anxiety disorder, unspecified; F17.200 Nicotine dependence, unspecified, uncomplicated; Z79.84 Long term (current) use of oral hypoglycemic drugs; Z79.899 Other long term (current) drug therapy
CPT/HCPCS: 71046; 87081; 87430; 99284

== ENCOUNTER 2018-05-04 00:16 | Emergency (ER) | payer OTHER ==
[2018-05-04 00:31] VITALS: PULSE 91
[2018-05-04] MEDS ORDERED: ONDANSETRON ODT 4 MG TAB PO STA (00:58)
[2018-05-04] MEDS ORDERED: IBUPROFEN 400 MG TAB PO STA (00:58)
[2018-05-04] MEDS ORDERED: HYDROcodone/APAP 5-325MG 1 EACH TAB PO STA (00:58)
--- NOTE | 2018-05-04 01:28 | XR ---
EXAMINATION TYPE: XR shoulder complete LT DATE OF EXAM: 05/04/2018 COMPARISON: 10/08/2010 HISTORY: Shoulder pain TECHNIQUE: 3 views FINDINGS: There is some spurring at the AC joint and slight joint space widening. There is a 5 mm bony density at the superior glenoid labrum. The margins show cortex and I do not think this is an acute fracture. There is minor spurring on the humeral head. Left second third and fourth ribs. IMPRESSION: Multiple left rib fractures. Chip fracture of the superior glenoid labrum does not appear acute. There is slight widening of the AC joint space suggestive of ligamentous tear. This appears new odessa red to old exam.
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
[2018-05-04 01:33] VITALS: BP 172/81; RESP 20; TEMP 97.4
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
[2018-05-04 02:11] LABS: Basophils # (A) 0.1 k/uL (0-0.2); Basophils % (A) 0 %; Eosinophils # (A) 0.3 k/uL (0-0.7); Eosinophils % (A) 2 %; HCT 35.9 % (39.0-53.0); HGB 12.4 gm/dL (13.0-17.5); Lymphocytes # (A) 1.9 k/uL (1.0-4.8); Lymphocytes % (A) 18 %; MCHC 34.5 g/dL (31.0-37.0); MCV 86.9 fL (80.0-100.0); Mean Platelet Volume 7.2; Monocytes # (A) 0.7 k/uL (0-1.0); Monocytes % (A) 6 %; Neutrophils % (A) 72 %; Platelet Count 210 k/uL (150-450); RBC 4.12 m/uL (4.30-5.90); RDW 14.2 % (11.5-15.5); WBC 11.1 k/uL (3.8-10.6)
[2018-05-04 02:18] LABS: ALT 36 U/L (21-72); AST 32 U/L (17-59); Albumin 3.8 g/dL (3.5-5.0); Alcohol <10 mg/dL; Alkaline Phosphatase 154 U/L (38-126); Anion Gap 10 mmol/L; Blood Urea Nitrogen 18 mg/dL (9-20); Calcium 9.3 mg/dL (8.4-10.2); Carbon Dioxide 25 mmol/L (22-30); Chloride 102 mmol/L (98-107); Glucose 255 mg/dL (74-99); Potassium 3.9 mmol/L (3.5-5.1); Sodium 137 mmol/L (137-145); Total Bilirubin 0.2 mg/dL (0.2-1.3); Total Protein 6.6 g/dL (6.3-8.2)
[2018-05-04 02:29] LABS: Creatine Kinase 314 U/L (55-170)
[2018-05-04 02:43] LABS: Troponin I <0.012 ng/mL (0.000-0.034)
[2018-05-04 02:45] LABS: Creatine Kinase MB 6.5 ng/mL (0.0-2.4)
[2018-05-04 02:46] LABS: Partial Thromboplastin Time 22.4 sec (22.0-30.0)
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
[2018-05-04 12:13] LABS: Appearance,Urine Clear (Clear); Bilirubin,Urine Negative (Negative); Blood,Urine Negative (Negative); Color,Urine Light Yellow; Glucose,Urine (UA) 4+ (Negative); Ketones,Urine Negative (Negative); Leukocyte Esterase,Urine Negative (Negative); Nitrite,Urine Negative (Negative); Protein,Urine Negative (Negative); Specific Gravity,Urine 1.009 (1.001-1.035); Urobilinogen,Urine <2.0 mg/dL (<2.0)
== END 2018-05-04 04:12 | disposition home or self-care (01) ==
LOC: EC 00:16
DX: S22.42XA Multiple fractures of ribs, left side, initial encounter for closed fracture (principal); S70.12XA Contusion of left thigh, initial encounter; E11.9 Type 2 diabetes mellitus without complications; I10 Essential (primary) hypertension; F17.200 Nicotine dependence, unspecified, uncomplicated; Z79.84 Long term (current) use of oral hypoglycemic drugs; Z79.899 Other long term (current) drug therapy; V86.56XA Driver of dirt bike or motor/cross bike injured in nontraffic accident, initial encounter
CPT/HCPCS: 99284 ×2; 96374; 99283; 36415; 93005; 80053; 82550; 82553; 84484; 85025; 85610; 85730; 81003; 73030; 71100; 71260; 74177; G0480; J1170; Q9967; 80320

== ENCOUNTER 2018-05-04 19:09 | Emergency (ER) | payer OTHER ==
[2018-05-04] MEDS ORDERED: HYDROmorphone 0.5 MG/0.5 ML SYRINGE IVP STA (20:46)
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
[2018-05-04 21:50] VITALS: BP 105/81; PULSE 90; RESP 16; TEMP 98.2
== END 2018-05-04 21:50 | disposition home or self-care (01) ==
LOC: EC 19:09
DX: S22.42XA Multiple fractures of ribs, left side, initial encounter for closed fracture (principal); E11.9 Type 2 diabetes mellitus without complications; I10 Essential (primary) hypertension; F17.200 Nicotine dependence, unspecified, uncomplicated; Z79.84 Long term (current) use of oral hypoglycemic drugs; Z79.899 Other long term (current) drug therapy; V28.4XXA Motorcycle driver injured in noncollision transport accident in traffic accident, initial encounter
CPT/HCPCS: 99283; 96374; J1170